=== PATIENT | female | born 1965 | race Caucasian/White ===

== ENCOUNTER → 2016-07-09 | Outpatient (CLI) | payer OTHER ==
--- NOTE | 2016-07-09 14:47 | MA ---
Diagnostic Bilateral Digital Mammogram With Tomosynthesis Clinical Indications: Right breast lump Technique: Standard digital cephalocaudal and tomosynthesis mediolateral oblique projections are obt ained. A true-lateral digital view and 2 spot digital films are obtained of the right breast. The dig ital images are processed by the [employer] computer aided detection system. Comparison: April 2012 and November 2010 Breast density: C; The breast tissue is heterogeneously dense, which could obscure detection of small masses. Findings: CAD was reviewed. There is a 16 x 13 mm mass in the upper outer periareolar right breast. T his correlates to a skin marker in the vicinity of the patient's palpable lump. The remainder of the right and left breast are stable. Impression: Mass right breast. Recommendation: Further imaging with ultrasound to differentiate cyst from solid. We will perform th is shortly. BI-RADS 0: Needs additional imaging evaluation, right breast. [facility] will send a result letter to the patient. Negative mammography should not preclude additional workup of a clinically suspicious finding. The patient's information is entered into a reminder system with a target due date for her next mammo gram.
--- NOTE | 2016-07-09 15:29 | US ---
Right Breast Ultrasound History: Palpable lump, waxing and waning Technique: I first performed a directed physical examination. This was followed by ultrasound exam with a high frequency linear transducer. Findings: Where the patient points to a recently palpable lesion, I cannot palpate a lesion, however directly below her finger at the 11:00 radial periareolar region is a complex, mammographically occul t cyst measuring 1.1 cm. 3 cm lateral to this complex cyst, is a nonpalpable simple cyst measuring 1. 6 cm that nicely correlates with the mammographic mass. Other small scattered simple cysts are presen t. Impression: 1. The mammographic mass is a simple cyst, which requires no further imaging workup. 2. There is a nonpalpable complex cyst between the dominant cyst in the nipple. Recommend 6 month fol lowup ultrasound to ensure stability or resolution of the complex cyst at the 11:00 periareolar radia l, unless the patient's "palpable" lump enlarges, at which time a followup ultrasound should be perfo rmed more expeditiously. Results and recommendation were communicated to the patient via the marriage therapist, and she is in agreement with the plan. BI-RADS 3. Probably benign, nonpalpable complex cyst.
== END ==
LOC: FIMAGING 14:03
PROVIDERS: ATTEND Physician Assistant
DX: N63 Unspecified lump in breast (principal)
CPT/HCPCS: G0204